=== PATIENT | female | born 1955 | race Caucasian/White ===

== ENCOUNTER 2024-07-21 09:28 | Inpatient (IN) | payer MEDICARE, BC, SELFPAY ==
[2024-07-21] VITALS (85 sets, daily range): BP systolic 109–155; BP diastolic 62–78; PULSE 79–102; RESP 11–30; TEMP 36.3–36.6; O2SAT 89–97; BMI 27.9
--- NOTE | 2024-07-21 09:36 | ECG_ITS ---
[facility] 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 Measurements Intervals Britton Rate: 91 P: 50 RI: 143 QRS: -16 QRSD: 85 T: 53 QT: 348 QTc: 429 Interpretive Statements SINUS RHYTHM LOW QRS VOLTAGE IN PRECORDIAL LEADS [QRS DEFLECTION < 1.0 mV IN CHEST LEADS] PATTERN CONSISTENT WITH PULMONARY DISEASE No previous ECG available for comparison Electronically Signed On 07-21-2024 19:28:52 FITTER HAND by Vicki Rodriguez M.D. [email or web address]
--- NOTE | 2024-07-21 09:36 | XR_ITS ---
WS: [id number] XR chest 2V* [id number] REASON FOR EXAM: cough, shortness of breath FINDINGS: The heart and mediastinum are within normal limits. Calcified granulomas disease in both hemithoraces. Reticular and groundglass opacities in both lower lobes, most notably on the right, compatible with a cute or subacute pneumonitis. Blunting of the right costophrenic angle which may indicate pleural effusion. Blunting of the XR/XR chest 2V* [id number] IMPRESSION: Findings compatible with acute or subacute pneumonitis. Potential right pleural effusion.
--- NOTE | 2024-07-21 10:05 | ED_ITS ---
HPI - SOB/Dyspnea 2 General: Chief Complaint: Shortness of Breath/Dyspnea Stated Complaint: SOB, no engery, coughing Time Seen by Provider: 07/21/24 09:55 Source: patient Mode of arrival: ambulatory Limitations: no limitations History of Present Illness: HPI Narrative: 68-year-old female states she has had co ugh congestion fatigue with subjective fevers at home over the last 4 days. She states she is progressively gotten more short of breath with worsening cough. She states she is diagnosed with strep on Friday started on antibiotics. She denies any vomiting or diarrhea. Has some mild hypoxia here. Associated symptoms: Reports fever(s); Deny abdominal pain, chest pain, nausea or vomiting Related Data Home Medications Medication Instructions Recorded Confirmed aspirin 81 mg tablet,delayed 81 mg PO DAILY 07/21/24 07/21/24 release (Mikey Low Dose Aspirin) cephalexin 500 mg capsule 500 mg PO TID 07/21/24 07/21/24 cholecalciferol (vitamin D3) 50 50 mcg PO DAILY 07/21/24 07/21/24 mcg (2,000 unit) tablet (Vitamin D3) fenofibrate nanocrystallized 145 145 mg PO DAILY 07/21/24 07/21/24 mg tablet levothyroxine 88 mcg tablet 88 mcg PO DAILY 07/21/24 07/21/24 venlafaxine 150 mg 150 mg PO BEDTIME 07/21/24 07/21/24 capsule,extended release 24 hr Previous Rx's Medication Instructions Recorded rosuvastatin 20 mg tablet 20 mg PO DAILY #90 tabs 11/25/19 Allergies Allergy/AdvReac Type Severity Reaction Status Date / Time meperidine [From Demerol] Allergy ALGY-Hives Verified 07/21/24 09:47 Review of Systems 2 Const: Reports: fever(s), chills and fatigue; Denies: body aches or change in appetite ENMT: Reports: throat pain; Denies: dental pain Card: Denies: chest pain Resp: Reports: dyspnea and productive cough GI: Denies: abdominal pain, nausea, vomiting or diarrhea : Denies: dysuria Musc: Denies: neck pain or back pain Skin/Breast: Denies: rash Neuro: Denies: headache(s) Physical Exam 2 Const: COMMON NORMALS: patient oriented x3 HENMT: COMMON NORMALS: normocephalic and atraumatic HEAD & SCALP: n ormocephalic and atraumatic Eye: COMMON NORMALS: conjunctivae normal CONJUNCTIVA: Yes conjunctivae normal Neck/C-Spine: COMMON NORMALS: full ROM and supple Chest: COMMONS NORMALS: normal inspection of the chest Resp: COMMON NORMALS: No retractions and No use of accessory muscles EFFORT & INSPECTION: Yes respiratory distress AUSCULTATION: rhonchi Cardio: COMMON NORMALS: regular rate, regular rhythm and No murmurs present (Cardio) RATE: regular rate RHYTHM: regular rhythm Extremity: COMMON NORMALS: normal to inspection and full ROM Neuro: COMMON NORMALS: patient oriented x3, moves all extremities and no focal motor deficits Psych: COMMON NORMALS: mental status grossly normal, Normal thought process present and cooperative THOUGHT PROCESS: Normal thought process present Skin: COMMON NORMALS: no rashes or lesions noted and no wounds GENERAL SKIN EXAM: no rashes or lesions noted Course 2 Vital Signs: Vital signs: Vital Signs Temperature 97.4 F L 07/21/24 09:41 Pulse Rate 93 07/21/24 11:00 Respiratory Rate 20 H 07/21/24 11:00 Blood Pressure 121/68 07/21/24 11:00 Pulse Oximetry 94 07/21/24 11:00 Oxygen Delivery Me thod Nasal Cannula 07/21/24 10:55 Oxygen Flow Rate 3 07/21/24 10:55 MDM - SOB/Dyspnea Medical Decision Making Patient presents here with cough shortness of breath x-ray shows likely pneumonia she is requiring 3 L oxygen here I spoke to hospitalist will admit at this time. Medical Records I reviewed the patient's medical records. Lab Data I reviewed the patient's lab results. 07/21/24 09:58 07/21/24 09:58 Labs/Radiology: Radiology Impressions Chest X-Ray 07/21/24 09:36 IMPRESSION: Findings compatible with acute or subacute pneumonitis. Potential right pleural effusion. Laboratory Results WBC 15.66 10^3/uL (3.29-11.43) H 07/21/24 09:58 RBC 4.16 10^6/uL (3.85-5.65) 07/21/24 09:58 Hgb 12.90 g/dL (11.27-16.99) 07/21/24 09:58 Hct 38.6 % (36-47) 07/21/24 09:58 MCV 92.8 fl (85-98) 07/21/24 09:58 MCH 31.0 pg (27-33) 07/21/24 09:58 MCHC 33.4 g/dL (30-55) 07/21/24 09:58 RDW 12.8 % (12.1-15.1) 07/21/24 09:58 Plt Count 496 10^3/cmm (157-399) H 07/21/24 09:58 MPV 9.3 fL (7.4-10.4) 07/21/24 09:58 Lymph % (Auto) Not Reportable 07/21/24 09:58 [place] % (Auto) Not Reportable 07/21/24 09:58 Lymph # (Auto) Not Reportable 07/21/24 09:58 [place] # (Auto) Not Reportable 07/21/24 09:58 Total Counted 100 (0-100) 07/21/24 09:58 Atypical Lymphs % 0.0 % (0-5) 07/21/24 09:58 Absolute Neutrophils 12.5 10^3/cmm (1.4-6.5) H 07/21/24 09:58 Segmented Neutrophils 74 % 07/21/24 09:58 Band Neutrophils 6.0 % 07/21/24 09:58 Absolute Lymphocytes 2.0 10^3/cmm (1.2-3.4) 07/21/24 09:58 Lymphocytes (Manual) 13 % 07/21/24 09:58 Monocytes (Manual) 2.0 % 07/21/24 09:58 Absolute Monocytes 0.3 10^3/cmm (0.1-0.6) 07/21/24 09:58 Eosinophils (Manual) 0 % 07/21/24 09:58 Absolute Eosinophils 0.0 10^3/cmm (0.0-0.7) 07/21/24 09:58 Basophils (Manual) 0.0 % 07/21/24 09:58 Absolute Basophils 0.0 10^3/cmm (0.0-0.2) 07/21/24 09:58 Metamyelocytes 2.0 % 07/21/24 09:58 Myelocytes 3.0 % 07/21/24 09:58 Nucleated RBCs 1.0 /100WBC (0-1) 07/21/24 09:58 Platelet Estimate Increased (Normal) H 07/21/24 09:58 Polychromasia Trace 07/21/24 09:58 Sodium 134 mmol/L (136-145) L 07/21/24 09:58 Potassium 3.5 mmol/L (3.5-5.1) 07/21/24 09:58 Chloride 94 mmol/L (98-107) L 07/21/24 09:58 Carbon Dioxide 26 mmol/L (22-29) 07/21/24 09:58 Anion Gap 17.5 (5-19) 07/21/24 09:58 BUN 33 mg/dL (8-23) H 07/21/24 09:58 Creatinine 0.9 mg/dL (0.5-0.9) 07/21/24 09:58 GFR Calculation 62.3 mL/min (90-130) L 07/21/24 09:58 Glucose 108 mg/dL (65-115) 07/21/24 09:58 Calculated Osmolality 286 mOsm/kg (285-295) 07/21/24 09:58 Calcium 10.5 mg/dL (8.5-10.5) 07/21/24 09:58 Magnesium 2.1 mg/dL (1.7-2.3) 07/21/24 09:58 Total Bilirubin 0.4 mg/dL (0.15-1.2) 07/21/24 09:58 AST 159 U/L (0-32) H 07/21/24 09:58 ALT 120 U/L (0-33) H 07/21/24 09:58 Alkaline Phosphatase 95 U/L (35-105) 07/21/24 09:58 NT-Pro-B Natriuret Pep 64 pg/mL (0-125) 07/21/24 09:58 Total Protein 8.1 g/dL (6.6-8.7) 07/21/24 09:58 Albumin 3.7 g/dL (3.5-5.2) 07/21/24 09:58 Globulin 4.4 g/dL (1.3-4.6) 07/21/24 09:58 Coronavirus (PCR) Negative (Negative) 07/21/24 10:05 Influenza A (PCR) Negative (Negative) 07/21/24 10:05 Influenza Type B (PCR) Negative (Negative) 07/21/24 10:05 RSV (PCR) Negative (Negative) 07/21/24 10:05 All radiology interpretation(s) finalized by discharge EKG Data EKG 1: I personally reviewed and interpreted this EKG as follows: EKG Interpretation Date: 07/21/24 EKG interpretation time: 09:48 Interpretation: nsr hr [address] elevation qrs 85 qtc 397 Discharge Plan Discharge Patient Disposition: Admitted As Inpatient Clinical Impression: Community acquired pneumonia, Acute respiratory failure with hypoxia Condition: Stable Prescriptions: No Action rosuvastatin 20 mg tablet 20 mg PO DAILY Qty: 90 0RF venlafaxine 150 mg capsule,extended release 24hr 150 mg PO BEDTIME aspirin [Mikey Low Dose Aspirin] 81 mg Tablet,Delayed Release (Dr/Ec) 81 mg PO DAILY levothyroxine 88 mcg tablet 88 mcg PO DAILY cephalexin 500 mg capsule 500 mg PO TID fenofibrate nanocrystallized 145 mg tablet 145 mg PO DAILY cholecalciferol (vitamin D3) [Vitamin D3] 50 mcg (2,000 unit) Tablet 50 mcg PO DAILY Referrals: Nazanin Dumont APN [Primary Care Provider] - Coding Level of Care Code ED Concrete Mixer Operator Helper for [facility]
[2024-07-21 10:09] LABS: Hematocrit 38.6 % (36-47); Mean Corpuscular HGB Conc 33.4 g/dL (30-55); Mean Corpuscular Volume 92.8 fl (85-98); Mean Platelet Volume 9.3 fL (7.4-10.4); Platelet Count 496 10^3/cmm (157-399); Red Blood Count 4.16 10^6/uL (3.85-5.65); Red Cell Distribution Width 12.8 % (12.1-15.1); White Blood Count 15.66 10^3/uL (3.29-11.43)
[2024-07-21 10:52] LABS: Alanine Aminotransferase 120 U/L (0-33); Albumin Level 3.7 g/dL (3.5-5.2); Alkaline Phosphatase 95 U/L (35-105); Anion Gap 17.5 (5-19); Aspartate Amino Transferase 159 U/L (0-32); Blood Urea Nitrogen 33 mg/dL (8-23); Calcium 10.5 mg/dL (8.5-10.5); Carbon Dioxide 26 mmol/L (22-29); Chloride 94 mmol/L (98-107); Creatinine Clr Calc Pharmacy 50.2875; Globulin 4.4 g/dL (1.3-4.6); Glomerular Filtration Rate 62.3 mL/min (90-130); Glucose 108 mg/dL (65-115); Magnesium 2.1 mg/dL (1.7-2.3); NT Pro B Type Natriuretic Pept 64 pg/mL (0-125); Osmolality Calculated 286 mOsm/kg (285-295); Potassium 3.5 mmol/L (3.5-5.1); Sodium 134 mmol/L (136-145); Total Bilirubin 0.4 mg/dL (0.15-1.2); Total Protein 8.1 g/dL (6.6-8.7)
[2024-07-21 11:02] LABS: Slide Review Slide Review Perform
[2024-07-21 11:09] LABS: Total Cells Counted 100 (0-100)
[2024-07-21 11:12] LABS: Absolute Neutrophil 12.5 10^3/cmm (1.4-6.5); Absolute Segmented Neutrophil 11.6 10/cmm (1.6-7.1); Band Neutrophils Absolute 0.9 10^3/cmm (0.0-1.2); Eosinophils 0 %; Lymphocytes 13 %; Monocytes Absolute 0.3 10^3/cmm (0.1-0.6); Platelet Estimate Increased (Normal); Polychromasia Trace; Segmented Neutrophils 74 %
[2024-07-21 11:14] LABS: Covid PCR NEGATIVE (Negative); Influenza A NEGATIVE (Negative); Influenza B NEGATIVE (Negative); Respiratory Syncytial Virus Ce NEGATIVE (Negative)
[2024-07-21] MEDS: cefTRIAXone 1,000 mg SDV 1000 MG IVP (11:27)
[2024-07-21] MEDS: AZITHROMYCIN ADD-Vantage 500 MG in 0.9% NaCl ADD-Vantage 250 ML 250 MG IV (11:39)
--- NOTE | 2024-07-21 12:44 | P.HP_ITS ---
Documented by User: Edin Reilly 07/21/24 13:21 Providers/Chief Complaint 2 Admitting Physician: Hans Bynum MD Primary Care Provider: Nazanin Dumont APN Chief Complaint: SOB, no engery, coughing History of Present Illness Ludmila Sánchez is a 68 y.o. female who presented to the ED with several days of cough, chills, shortness of breath, weakness, and headache. She has not checked her temperature but has felt subjectively febrile. She states her appetite has been virtually nonexistent, but she has managed to force herself to stay hydrated. She was seen by her primary care provider on Friday and given antibiotics after a positive strep swab. She states other testing including COVID was negative at that time. Her throat does not feel sore today. She has not had any vomiting or abdominal pain. She informs us about a severe bout of pneumonia she had around 2011 that caused her to be hospitalized and receive numerous trials of antibiotics. She feels that illness left her with some permanent lung problems. However, she does not require any oxygen at baseline. Review of Systems 2 General: Reports: 10 or more systems reviewed and unremarkable except in HPI and below Const: Reports: fever(s), chills, change in appetite and fatigue Eyes: Denies: change in vision ENMT: Denies: throat pain or odynophagia Card: Reports: chest pain; Denies: edema, swelling of feet/ankles or acrocyanosis Resp: Reports: dyspnea and non-productive cough GI: Reports: diarrhea; Denies: abdominal pain, vomiting or dysphagia : Denies: difficulty voiding Musc: Reports: joint pain Skin/Breast: Denies: rash Neuro: Reports: headache(s); Denies: numbness in extremities or lack of coordination Psych: Reports: change in appetite Medications/Allergies Home Medications Medication Instructions Recorded Confirmed Last Taken Type rosuvastatin 20 mg tablet 20 mg PO DAILY #90 tabs 11/25/19 07/21/24 07/20/24 Rx aspirin 81 mg tablet,delayed 81 mg PO DAILY 07/21/24 07/21/24 07/20/24 History release (Mikey Low Dose Aspirin) cephalexin 500 mg capsule 500 mg PO TID 07/21/24 07/21/24 07/20/24 History cholecalciferol (vitamin D3) 50 50 mcg PO DAILY 07/21/24 07/21/24 07/20/24 History mcg (2,000 unit) tablet (Vitamin D3) fenofibrate nanocrystallized 145 145 mg PO DAILY 07/21/24 07/21/24 07/20/24 History mg tablet levothyroxine 88 mcg tablet 88 mcg PO DAILY 07/21/24 07/21/24 07/20/24 History venlafaxine 150 mg 150 mg PO BEDTIME 07/21/24 07/21/24 07/20/24 History capsule,extended release 24 hr Allergies Allergy/AdvReac Type Severity Reaction Status Date / Time meperidine [From Demerol] Allergy ALGY-Hives Verified 07/21/24 09:47 PFSH Acute 2 PFSH: Medical History (Updated 07/21/24 @ 13:28 by Hans Bynum MD) Depression Hypothyroidism Hyperlipidemia Surgical History (Updated 07/21/24 @ 13:29 by Hans Bynum MD) History of carpal tunnel surgery Social History (Updated 07/21/24 @ 13:29 by Hans Bynum MD) Smoking and tobacco/nicotine status: former use of tobacco/nicotine Alcohol intake: never Vitals/I&O/Wt Last Vital Signs Temp 97.4 F L 07/21/24 09:41 Pulse 90 07/21/24 12:20 Resp 24 H 07/21/24 12:20 BP 109/62 07/21/24 12:20 Pulse Ox 92 07/21/24 12:20 O2 Del Method Nasal Cannula 07/21/24 11:25 O2 Flow Rate 3 07/21/24 11:25 Weight last 48 hrs Weight 143 lb Physical Exam 2 Narrative: General: Alert and oriented. Visibly ill. On oxygen via nasal cannula. HEENT: Normocephalic, atraumatic. Oropharynx clear. Cardiovascular: Regular rate and rhythm. No murmurs. Pulmonary: Coarse breath sounds. Diminished breath sounds on lower right lung field. Abdomen: Soft, nondistended. No obvious organomegaly. Nontender. Extremities: No edema. No cyanosis. Neuro/Psych: No obvious focal deficits. Appropriate mood and affect. Conversational. Data 07/21/24 09:58 07/21/24 09:58 Micro: Microbiology 07/21/24 11:10 Blood Culture - Preliminary Blood SPECIMEN COLLECTED 07/21/24 11:10 Blood Culture - Preliminary Blood SPECIMEN COLLECTED A&P Assessment and plan (1) Community acquired pneumonia: Presents with 4+ days of SOB, chills, nonproductive cough, and malaise. Subjective fevers noted, but no objective fevers recorded. Given cephalexin by PCP on Friday for strep throat. Will discontinue at this time. Today, CXR suggests pneumonia/pneumonitis with potential right pleural effusion. Will order CT chest to further evaluate. Labs show leukocytosis with left shift. COVID, Influenza A & B, and RSV all negative. Ordered MRSA swab and Legionella antigen. Currently on 3L via NC. IV antibiotics with azithromycin and ceftriaxone. (2) Acute respiratory failure with hypoxia: See above. Likely secondary to community acquired pneumonia. Currently requiring 3L O2 via NC. (3) Elevated liver transaminase level: AST 159. ALT 120. Alk phos and bilirubin normal. Hepatitis panel pending. Plan DVT prophylaxis: Lovenox Full code. Coding Level of Care Code 00113 Diagnoses Community acquired pneumonia J18.9 Acute respiratory failure with hypoxia J96.01 Elevated liver transaminase level R74.01 Time Spent (min) 56 Documented by User: Hans Bynum MD 07/21/24 13:33 Providers/Chief Complaint 2 Chief Complaint: SOB, no engery, coughing Medications/Allergies Home Medications Medication Instructions Recorded Confirmed Last Taken Type rosuvastatin 20 mg tablet 20 mg PO DAILY #90 tabs 11/25/19 07/21/24 07/20/24 Rx aspirin 81 mg tablet,delayed 81 mg PO DAILY 07/21/24 07/21/24 07/20/24 History release (Mikey Low Dose Aspirin) cephalexin 500 mg capsule 500 mg PO TID 07/21/24 07/21/24 07/20/24 History cholecalciferol (vitamin D3) 50 50 mcg PO DAILY 07/21/24 07/21/24 07/20/24 History mcg (2,000 unit) tablet (Vitamin D3) fenofibrate nanocrystallized 145 145 mg PO DAILY 07/21/24 07/21/24 07/20/24 History mg tablet levothyroxine 88 mcg tablet 88 mcg PO DAILY 07/21/24 07/21/24 07/20/24 History venlafaxine 150 mg 150 mg PO BEDTIME 07/21/24 07/21/24 07/20/24 History capsule,extended release 24 hr Allergies Allergy/AdvReac Type Severity Reaction Status Date / Time meperidine [From Demerol] Allergy ALGY-Hives Verified 07/21/24 09:47 PFSH Acute 2 PFSH: Medical History (Updated 07/21/24 @ 13:28 by Hans Bynum MD) Depression Hypothyroidism Hyperlipidemia Surgical History (Updated 07/21/24 @ 13:29 by Hans Bynum MD) History of carpal tunnel surgery Social History (Updated 07/21/24 @ 13:29 by Hans Bynum MD) Smoking and tobacco/nicotine status: former use of tobacco/nicotine Alcohol intake: never Data 07/21/24 09:58 07/21/24 09:58 Other Labs: LFTs normal with the exception of AST and ALT which were 159 and 120 Glucose calcium and albumin are all normal TSH is elevated 7.44 Hepatitis panel which I ordered is negative. Coronavirus, influenza, RSV all negative Chest x-ray which I reviewed demonstrates an infiltrate in the right lower lobe with possible effusion. Blood cultures were drawn EKG which I reviewed demonstrates sinus rhythm, poor R wave progression,, left axis deviation. A&P Assessment and plan (1) Community acquired pneumonia: Presents with 4+ days of SOB, chills, nonproductive cough, and malaise. Subjective fevers noted, but no objective fevers recorded. Given cephalexin by PCP on Friday for strep throat. Will discontinue at this time. Today, CXR suggests pneumonia/pneumonitis with potential right pleural effusion. Will order CT chest to further evaluate. Patient reports some chest discomfort with deep breathing and coughing. Therefore, will obtain a CTA. Labs show leukocytosis with left shift. COVID, Influenza A & B, and RSV all negative. Ordered MRSA swab and Legionella antigen. Currently on 3L via NC. IV antibiotics with azithromycin and ceftriaxone. Sputum culture Secondary to severity of pneumonia we will go ahead and give 1 dose of Solu- Medrol and reevaluate tomorrow. DuoNeb as needed (2) Acute respiratory failure with hypoxia: See above. Likely secondary to community acquired pneumonia. Currently requiring 3L O2 via NC. Wean oxygen as tolerated (3) Elevated liver transaminase level: AST 159. ALT 120. Alk phos and bilirubin normal. Hepatitis panel pending. Now back and negative Secondary to slightly abnormal EKG, elevated AST will check a troponin. Attestations 2 Medical Necessity Statement*: Will need greater than 2 midnight stay for evaluation and treatment of community-acquired pneumonia with IV antibiotics, in this patient who was hypoxic. Diagnoses Community acquired pneumonia J18.9 Acute respiratory failure with hypoxia J96.01 Elevated liver transaminase level R74.01 Time Spent (min) 56
[2024-07-21 13:10] LABS: Thyroid Stimulating Hormone 7.44 uIU/mL (0.27-4.20)
[2024-07-21 13:14] LABS: Hepatitis A Antibody IgM Non-Reactive (Nonreactive); Hepatitis B Core IgM Non-Reactive (Nonreactive); Hepatitis B Surface Antigen Non-Reactive (Nonreactive); Hepatitis C Virus Antibody Non-Reactive (Nonreactive)
--- NOTE | 2024-07-21 13:22 | CTR_ITS ---
PROCEDURE INFORMATION: Exam: CTA Chest With Contrast Exam date and time: 07/21/2024 1:52 PM Age: 68 years old Clinical indication: Cough and shortness of breath; Additional info: Possible effusion, chest pain, pneumonia TECHNIQUE: Imaging protocol: Computed tomographic angiography of the chest with contrast. Exam focused on the arteries. 3D rendering (Not supervised by radiologist): MIP and/or 3D reconstructed images were created by the technologist. Radiation optimization: All CT scans at this facility use at least one of these dose optimization techniques: automated exposure control; mA and/or kV adjustment per patient size (includes targeted exams where dose is matched to clinical indication); or iterative reconstruction. Contrast material: OMNI 350; Contrast volume: 70 ml; Contrast route: INTRAVENOUS (IV); COMPARISON: CR XR chest 2V* [id number] 07/21/2024 10:00 AM RADIATION DOSE METRICS: Total DLP (mGy-cm): 340.09 FINDINGS: Pulmonary arteries: No PE. No evidence of cardiac strain. Aorta: Unremarkable. No aortic aneurysm. No aortic dissection. Lungs: Scattered reticulonodular , small patchy, and large consolidative opacities bilaterally, most prominently right lung base. Pleural spaces: Unremarkable. No pneumothorax. No pleural effusion. Heart: Heart size upper limits of normal. Lymph nodes: Right hilar lymph nodes measuring up to 16 mm short axis. No distinct mediastinal or left hilar adenopathy. Spleen: Punctate calcified granulomas in the spleen. Bones/joints: Unremarkable. No acute fracture. Soft tissues: Unremarkable. CT/CT angio chest PE protcl [id number] IMPRESSION: 1. No PE. No evidence of cardiac strain. 2. Bilateral pneumonia.
[2024-07-21] MEDS: enoxaparin 40 mg/0.4 mL Syringe SUBCUT (13:38)
[2024-07-21] MEDS: methylPREDNISolone sod succ 125 mg/2 mL INJ 60 MG IVP (13:41)
[2024-07-21 14:00] LABS: Troponin T (5th) Once 10 ng/L (0-10)
[2024-07-21] MEDS: iohexol 350 mg/mL 500 mL Btl (per mL) IV (14:07)
[2024-07-21 14:41] LABS: Bilirubin Urine Negative (Negative); Blood Urine Negative (Negative); Glucose Urine UA Negative (Normal); Ketones Urine Negative (Negative); Leukocyte Esterase Urine 1+ (Negative); Nitrate Urine Negative (Negative); Protein Urine Trace (Negative); Urine Appearance Clear (CLEAR); Urine Color Yellow (Yellow)
[2024-07-21 14:46] LABS: Bacteria Urine None Seen /hpf; Hyaline Casts Urine 0.81 /lpf; RBC Urine 0-2 /hpf (0-2); Squamous Epithelial Cell Urine 0-5 /hpf (0-5)
[2024-07-21 15:54] LABS: MRSA PCR OZH (swab) NOT DETECTED (Not Detecte)
[2024-07-21] MEDS: venlafaxine ER (24HR) 150 mg Capsule PO (21:32)
[2024-07-22] VITALS (8 sets, daily range): BP systolic 118–143; BP diastolic 56–85; PULSE 73–82; RESP 17–82; TEMP 36.4–36.7; O2SAT 90–98
[2024-07-22 05:56] LABS: Basophils # 0.1 10^3/uL (0.0-0.1); Basophils % 0.4 %; Hematocrit 36.5 % (36-47); Lymphocytes # 2.1 10^3/uL (0.8-4.8); Lymphocytes % 12.8 %; Mean Corpuscular HGB Conc 33.2 g/dL (30-55); Mean Corpuscular Hemoglobin 31.3 pg (27-33); Mean Corpuscular Volume 94.3 fl (85-98); Mean Platelet Volume 9.5 fL (7.4-10.4); Monocytes # 0.8 10^3/uL (0.2-0.9); Monocytes % 4.8 %; Neutrophils # 12.82 10^3/uL (1.8-7.7); Neutrophils % 76.6 %; Nucleated Red Blood Cells % 0 %; Platelet Count 429 10^3/cmm (157-399); Red Blood Count 3.87 10^6/uL (3.85-5.65); Red Cell Distribution Width 13.2 % (12.1-15.1); White Blood Count 16.74 10^3/uL (3.29-11.43)
[2024-07-22 06:23] LABS: Alanine Aminotransferase 171 U/L (0-33); Albumin Level 3.3 g/dL (3.5-5.2); Alkaline Phosphatase 116 U/L (35-105); Anion Gap 17.1 (5-19); Aspartate Amino Transferase 173 U/L (0-32); Blood Urea Nitrogen 23 mg/dL (8-23); Calcium 9.8 mg/dL (8.5-10.5); Carbon Dioxide 27 mmol/L (22-29); Chloride 102 mmol/L (98-107); Creatinine Clr Calc Pharmacy 57.2479; Globulin 4.1 g/dL (1.3-4.6); Glomerular Filtration Rate 83.2 mL/min (90-130); Glucose 154 mg/dL (65-115); Magnesium 2.3 mg/dL (1.7-2.3); Osmolality Calculated 301 mOsm/kg (285-295); Potassium 4.1 mmol/L (3.5-5.1); Sodium 142 mmol/L (136-145); Total Bilirubin 0.3 mg/dL (0.15-1.2); Total Protein 7.4 g/dL (6.6-8.7)
[2024-07-22 07:22] LABS: Slide Review Slide Review Perform
--- NOTE | 2024-07-22 08:01 | US_ITS ---
WS: [id number] ULTRASOUND ABDOMEN LIMITED CLINICAL INFORMATION: elevated LFT's COMPARISON: None. FINDINGS: Technically difficult study. Liver Size: Upper limits of normal Craniocaudal length: 15.0 cm. Echogenicity: Coarse Surface nodularity: None. Mass (size and location): None. Normal flow in the main portal vein. Bile ducts Intrahepatic ducts: Normal. Common bile duct diameter: 0.4 cm. Gallbladder Contracted Gallstones: None. Gallbladder sludge: None. Gallbladder wall thickening: None. Pericholecystic fluid: None. Sonographic Sam sign: Absent. Pancreas Normal as visualized. Right kidney: Normal. Hydronephrosis: None. Size: 9.3 cm x 3.9 cm x 4.5 cm. Abdominal aorta and IVC Visualized portions are normal. Ascites: None. US/US gall bladder [id number] IMPRESSION: Technically difficult study 1. Mild diffuse fatty infiltration of the liver. 2. Otherwise normal ultrasound
[2024-07-22] MEDS: levothyroxine 88 mcg Tablet PO (08:45)
[2024-07-22] MEDS: aspirin 81 mg EC Tablet PO (08:45)
[2024-07-22] MEDS: cefTRIAXone 1,000 mg SDV 1000 MG IVP (08:54)
[2024-07-22] MEDS: AZITHROMYCIN ADD-Vantage 500 MG in 0.9% NaCl ADD-Vantage 250 ML 250 MG IV (09:19)
--- NOTE | 2024-07-22 09:24 | P.PN_ITS ---
Subjective 2 Subjective: Ludmila reports she feels a bit better. No chest pain. Less short of breath. Still coughing some. Now on 2 L of oxygen. Medications: Reviewed: Yes Vitals/I&O/Wt Last Vital Signs Temp 98.0 F 07/22/24 08:02 Pulse 79 07/22/24 08:02 Resp 18 07/22/24 08:02 BP 132/77 07/22/24 08:02 Pulse Ox 91 07/22/24 08:02 O2 Del Method Room Air 07/22/24 08:02 O2 Flow Rate 2 07/21/24 18:41 07/21/24 07/22/24 07/22/24 22:59 06:59 14:59 Intake Total 240 / 240 Output Total 300 / 300 Balance -300 / -50 240 / 240 Weight last 48 hrs Weight 66.451 kg Weight 64.864 kg Physical Exam 2 Narrative: General: Looks more energetic Cardiovascular: Regular rate and rhythm. No murmurs. Pulmonary: Coarse breath sounds. Diminished breath sounds on lower right lung field. Abdomen: Soft, nondistended. No obvious organomegaly. Nontender. Extremities: No edema. No cyanosis. Data 07/22/24 05:19 07/22/24 05:19 Micro: Microbiology 07/21/24 12:14 Legionella Urinary Antigen - Final Urine,Clean Catch 07/21/24 11:10 Blood Culture - Preliminary Blood SPECIMEN COLLECTED 07/21/24 11:10 Blood Culture - Preliminary Blood SPECIMEN COLLECTED A&P Assessment and plan (1) Community acquired pneumonia: Presents with 4+ days of SOB, chills, nonproductive cough, and malaise. Subjective fevers noted, but no objective fevers recorded. Given cephalexin by PCP on Friday for strep throat. Will discontinue at this time. Today, CXR suggests pneumonia/pneumonitis with potential right pleural effusion. CTA showed no embolism. No effusion. Labs show leukocytosis with left shift. COVID, Influenza A & B, and RSV all negative. Ordered MRSA swab and Legionella antigen. Currently on 3L via NC. Continue IV antibiotics with azithromycin and ceftriaxone. Sputum culture pending Secondary to severity of pneumonia we will go ahead and give 1 dose of Solu- Medrol and reevaluate tomorrow. No further Solu-Medrol considering her rapid improvement DuoNeb as needed Wean oxygen as tolerated If off oxygen by tomorrow, feeling improved possible discharge. (2) Acute respiratory failure with hypoxia: See above. Likely secondary to community acquired pneumonia. Currently requiring 2L O2 via NC. Wean oxygen as tolerated (3) Elevated liver transaminase level: LFTs still elevated. Check gallbladder ultrasound. Hepatitis panel was negative. Patient with no significant abdominal pain currently. Plan DVT prophylaxis: Lovenox Full code. Attestations 2 Medical Necessity Statement*: Needs continued hospitalization for IV antibiotics secondary to pneumonia, rather extensive right greater than left lower lobe Diagnoses Community acquired pneumonia J18.9 Acute respiratory failure with hypoxia J96.01 Elevated liver transaminase level R74.01 Time Spent (min) 24
[2024-07-22] MEDS: enoxaparin 40 mg/0.4 mL Syringe SUBCUT (13:57)
[2024-07-22] MEDS: acetaminophen 325 mg Tablet 650 MG PO ×2 (16:50→23:05)
--- NOTE | 2024-07-22 18:40 | PC.NURSE ---
Patient took a shower and requested not to put the telemetry box back on.
[2024-07-22] MEDS: venlafaxine ER (24HR) 150 mg Capsule PO (21:08)
[2024-07-23] VITALS (10 sets, daily range): BP systolic 137–155; BP diastolic 63–89; PULSE 71–85; RESP 15–20; TEMP 36.3–37.4; O2SAT 90–91
[2024-07-23 06:37] LABS: Basophils # 0.1 10^3/uL (0.0-0.1); Basophils % 0.5 %; Eosinophils % 0.2 %; Hematocrit 37.5 % (36-47); Lymphocytes # 2.7 10^3/uL (0.8-4.8); Lymphocytes % 15.2 %; Mean Corpuscular HGB Conc 32.8 g/dL (30-55); Mean Corpuscular Hemoglobin 31.4 pg (27-33); Mean Corpuscular Volume 95.7 fl (85-98); Mean Platelet Volume 9.2 fL (7.4-10.4); Neutrophils # 12.35 10^3/uL (1.8-7.7); Nucleated Red Blood Cells % 0 %; Platelet Count 540 10^3/cmm (157-399); Red Blood Count 3.92 10^6/uL (3.85-5.65); Red Cell Distribution Width 13.2 % (12.1-15.1)
[2024-07-23 06:48] LABS: Anion Gap 16.6 (5-19); Blood Urea Nitrogen 18 mg/dL (8-23); Calcium 9.2 mg/dL (8.5-10.5); Carbon Dioxide 25 mmol/L (22-29); Chloride 99 mmol/L (98-107); Creatinine Clr Calc Pharmacy 57.9228; Glomerular Filtration Rate 71.3 mL/min (90-130); Glucose 102 mg/dL (65-115); Osmolality Calculated 286 mOsm/kg (285-295); Potassium 3.6 mmol/L (3.5-5.1); Sodium 137 mmol/L (136-145)
[2024-07-23] MEDS: aspirin 81 mg EC Tablet PO (08:39)
[2024-07-23] MEDS: levothyroxine 88 mcg Tablet PO (08:39)
[2024-07-23] MEDS: cefTRIAXone 1,000 mg SDV 1000 MG IVP (08:39)
[2024-07-23 08:40] LABS: Alanine Aminotransferase 151 U/L (0-33); Aspartate Amino Transferase 114 U/L (0-32); Lactate Dehydrogenase 262 U/L (135-214)
[2024-07-23] MEDS: AZITHROMYCIN ADD-Vantage 500 MG in 0.9% NaCl ADD-Vantage 250 ML 250 MG IV (08:40)
--- NOTE | 2024-07-23 12:19 | P.PN_ITS ---
Subjective 2 Subjective: Saw patient several times today. He has been able to wean to room air, but saturations are borderline at 90%. She still feels short of breath when she exerts. She still coughing but a little bit less. No chest pain. Medications: Reviewed: Yes Vitals/I&O/Wt Last Vital Signs Temp 98.1 F 07/23/24 07:45 Pulse 81 07/23/24 07:54 Resp 16 07/23/24 07:54 BP 155/89 07/23/24 07:45 Pulse Ox 90 07/23/24 07:54 O2 Del Method Room Air 07/23/24 07:54 O2 Flow Rate 2 07/22/24 10:53 07/22/24 07/23/24 07/23/24 22:59 06:59 14:59 Intake Total 1060 / 1790 580 / 580 Balance 1060 / 1790 580 / 580 Weight last 48 hrs Weight 68.039 kg Weight 66.451 kg Physical Exam 2 Narrative: General: Looks more energetic Cardiovascular: Regular rate and rhythm. No murmurs. Pulmonary: Coarse breath sounds at the bases bilaterally Abdomen: Soft, nondistended. No obvious organomegaly. Nontender. Extremities: No edema. No cyanosis. Data 07/23/24 05:52 07/23/24 05:52 Micro: Microbiology 07/21/24 11:10 Blood Culture - Preliminary Blood NEGATIVE TO DATE 07/21/24 11:10 Blood Culture - Preliminary Blood NEGATIVE TO DATE A&P Assessment and plan (1) Community acquired pneumonia: Presents with 4+ days of SOB, chills, nonproductive cough, and malaise. Subjective fevers noted, but no objective fevers recorded. Given cephalexin by PCP on Friday for strep throat. Will discontinue at this time. Today, CXR suggests pneumonia/pneumonitis with potential right pleural effusion. CTA showed no embolism. No effusion. Labs show leukocytosis with left shift. COVID, Influenza A & B, and RSV all negative. Ordered MRSA swab and Legionella antigen. Now on room air Continue IV antibiotics with azithromycin and ceftriaxone. Sputum culture pending DuoNeb as needed Wean oxygen as tolerated She is still fairly winded with exertion. Oxygen levels are borderline. Will continue IV antibiotics for at least 1 more day. (2) Acute respiratory failure with hypoxia: See above. Likely secondary to community acquired pneumonia. Currently requiring 2L O2 via NC. Wean oxygen as tolerated (3) Elevated liver transaminase level: LFTs still elevated. Check gallbladder ultrasound. Hepatitis panel was negative. Patient with no significant abdominal pain currently. Ultrasound showed fatty liver. LFTs are improving Plan DVT prophylaxis: Lovenox Full code. Attestations 2 Medical Necessity Statement*: Needs continued hospital stay for IV antibiotics related to pneumonia Diagnoses Community acquired pneumonia J18.9 Acute respiratory failure with hypoxia J96.01 Elevated liver transaminase level R74.01 Time Spent (min) 24
[2024-07-23] MEDS: enoxaparin 40 mg/0.4 mL Syringe SUBCUT (12:37)
[2024-07-23 14:23] LABS: Gamma Glutamyl Transferase 107 U/L (5-36)
[2024-07-23] MEDS: venlafaxine ER (24HR) 150 mg Capsule PO (20:06)
[2024-07-23] MEDS: acetaminophen 325 mg Tablet 650 MG PO (20:06)
[2024-07-24] VITALS (7 sets, daily range): BP systolic 108–166; BP diastolic 69–86; PULSE 76–89; RESP 14–18; TEMP 36.4–36.8; O2SAT 91–98
[2024-07-24 05:44] LABS: Basophils # 0.1 10^3/uL (0.0-0.1); Basophils % 0.4 %; Eosinophils # 0.1 10^3/uL (0.0-0.8); Eosinophils % 0.5 %; Hematocrit 40.3 % (36-47); Lymphocytes % 20.1 %; Mean Corpuscular HGB Conc 32.8 g/dL (30-55); Mean Corpuscular Hemoglobin 31.2 pg (27-33); Mean Corpuscular Volume 95.3 fl (85-98); Mean Platelet Volume 9.2 fL (7.4-10.4); Monocytes # 0.9 10^3/uL (0.2-0.9); Monocytes % 5.6 %; Neutrophils # 9.92 10^3/uL (1.8-7.7); Nucleated Red Blood Cells % 0 %; Platelet Count 616 10^3/cmm (157-399); Red Blood Count 4.23 10^6/uL (3.85-5.65); Red Cell Distribution Width 13.2 % (12.1-15.1); White Blood Count 15.05 10^3/uL (3.29-11.43)
[2024-07-24 05:55] LABS: Alanine Aminotransferase 118 U/L (0-33); Albumin Level 3.3 g/dL (3.5-5.2); Alkaline Phosphatase 108 U/L (35-105); Anion Gap 13.8 (5-19); Aspartate Amino Transferase 70 U/L (0-32); Blood Urea Nitrogen 12 mg/dL (8-23); Calcium 9.8 mg/dL (8.5-10.5); Carbon Dioxide 27 mmol/L (22-29); Chloride 101 mmol/L (98-107); Creatinine Clr Calc Pharmacy 56.0915; Globulin 4.1 g/dL (1.3-4.6); Glomerular Filtration Rate 71.3 mL/min (90-130); Glucose 100 mg/dL (65-115); Osmolality Calculated 286 mOsm/kg (285-295); Potassium 3.8 mmol/L (3.5-5.1); Sodium 138 mmol/L (136-145); Total Bilirubin 0.4 mg/dL (0.15-1.2); Total Protein 7.4 g/dL (6.6-8.7)
[2024-07-24 06:11] LABS: Slide Review Slide Review Perform
[2024-07-24] MEDS: aspirin 81 mg EC Tablet PO (07:50)
[2024-07-24] MEDS: levothyroxine 88 mcg Tablet PO (07:50)
[2024-07-24] MEDS: cefTRIAXone 1,000 mg SDV 1000 MG IVP (07:51)
[2024-07-24] MEDS: AZITHROMYCIN ADD-Vantage 500 MG in 0.9% NaCl ADD-Vantage 250 ML 250 MG IV (07:54)
[2024-07-24] MEDS: enoxaparin 40 mg/0.4 mL Syringe SUBCUT (12:30)
--- NOTE | 2024-07-24 13:16 | PM.DCS ---
Discharge Providers Date of Admission: 07/21/24 15:39 Date of Discharge: July 24, 2024 Attending Provider at Admission: Hans Bynum MD Attending Provider at Discharge: Sera Lal MD Primary Care Provider: Nazanin Dumont APN Diagnoses at Discharge Discharge Diagnosis (1) Community acquired pneumonia: Status: Acute (2) Acute respiratory failure with hypoxia: Status: Resolved (3) Elevated liver transaminase level: Status: Acute Reason for Visit Reason for Visit: SOB, no engery, coughing Hospital Course Hospital Course Patient presented with shortness of breath and diagnosed with community-acquired pneumonia. Chest x-ray did show evidence of pleural effusion for which CTA chest was obtained. No pulmonary embolism or cardiac strain seen, did show bilateral pneumonia. Gallbladder ultrasound was also pursued which was normal. It did show mild diffuse fatty infiltration of liver. Patient shortness of breath improved and she was sent home on room air with antibiotics. Stable at discharge. Physical Exam Narrative: General: Looks more energetic, no acute respiratory drainage x 3. Cardiovascular: Regular rate and rhythm. No murmurs. Pulmonary: To auscultation bilaterally no wheezes no rhonchi no crackles. Abdomen: Soft, nondistended. No obvious organomegaly. Nontender. Extremities: No edema. No cyanosis. Discharge Data Studies Completed and Pending Completed Studies During Hospitalization Category Date Time Status CTA chest [CT angio chest PE protcl [id number]] Stat Cat Scan 07/21/24 13:22 Completed XR chest 2V* [id number] Stat Exams 07/21/24 09:36 Completed US gall bladder [id number] Routine Ultrasound 07/22/24 08:01 Completed Pending at discharge Category Date Time Status Blood Culture Stat Lab 07/21/24 11:10 Results Sputum Culture and Gram Stain Routine Lab 07/22/24 21:41 Results Radiology Impressions Chest X-Ray 07/21/24 09:36 IMPRESSION: Findings compatible with acute or subacute pneumonitis. Potential right pleural effusion. Chest CTA 07/21/24 13:22 IMPRESSION: 1. No PE. No evidence of cardiac strain. 2. Bilateral pneumonia. Gallbladder Ultrasound 07/22/24 08:01 IMPRESSION: Technically difficult study 1. Mild diffuse fatty infiltration of the liver. 2. Otherwise normal ultrasound Laboratory Results WBC 15.05 10^3/uL (3.29-11.43) H 07/24/24 04:58 RBC 4.23 10^6/uL (3.85-5.65) 07/24/24 04:58 Hgb 13.20 g/dL (11.27-16.99) 07/24/24 04:58 Hct 40.3 % (36-47) 07/24/24 04:58 MCV 95.3 fl (85-98) 07/24/24 04:58 MCH 31.2 pg (27-33) 07/24/24 04:58 MCHC 32.8 g/dL (30-55) 07/24/24 04:58 RDW 13.2 % (12.1-15.1) 07/24/24 04:58 Plt Count 616 10^3/cmm (157-399) H 07/24/24 04:58 MPV 9.2 fL (7.4-10.4) 07/24/24 04:58 Neut % (Auto) 66.0 % 07/24/24 04:58 Lymph % (Auto) 20.1 % 07/24/24 04:58 Williams % (Auto) 5.6 % 07/24/24 04:58 Eos % (Auto) 0.5 % 07/24/24 04:58 Baso % (Auto) 0.4 % 07/24/24 04:58 Neut # (Auto) 9.92 10^3/uL (1.8-7.7) H 07/24/24 04:58 Lymph # (Auto) 3.0 10^3/uL (0.8-4.8) 07/24/24 04:58 Williams # (Auto) 0.9 10^3/uL (0.2-0.9) 07/24/24 04:58 Eos # (Auto) 0.1 10^3/uL (0.0-0.8) 07/24/24 04:58 Baso # (Auto) 0.1 10^3/uL (0.0-0.1) 07/24/24 04:58 Nucleated RBC % (auto) 0 % 07/24/24 04:58 Total Counted 100 (0-100) 07/21/24 09:58 Atypical Lymphs % 0.0 % (0-5) 07/21/24 09:58 Absolute Neutrophils 12.5 10^3/cmm (1.4-6.5) H 07/21/24 09:58 Segmented Neutrophils 74 % 07/21/24 09:58 Band Neutrophils 6.0 % 07/21/24 09:58 Absolute Lymphocytes 2.0 10^3/cmm (1.2-3.4) 07/21/24 09:58 Lymphocytes (Manual) 13 % 07/21/24 09:58 Monocytes (Manual) 2.0 % 07/21/24 09:58 Absolute Monocytes 0.3 10^3/cmm (0.1-0.6) 07/21/24 09:58 Eosinophils (Manual) 0 % 07/21/24 09:58 Absolute Eosinophils 0.0 10^3/cmm (0.0-0.7) 07/21/24 09:58 Basophils (Manual) 0.0 % 07/21/24 09:58 Absolute Basophils 0.0 10^3/cmm (0.0-0.2) 07/21/24 09:58 Metamyelocytes 2.0 % 07/21/24 09:58 Myelocytes 3.0 % 07/21/24 09:58 Nucleated RBCs 1.0 /100WBC (0-1) 07/21/24 09:58 Nucleated RBCs # 0.0 /100WBC 07/24/24 04:58 Platelet Estimate Increased (Normal) H 07/21/24 09:58 Polychromasia Trace 07/21/24 09:58 Sodium 138 mmol/L (136-145) 07/24/24 04:58 Potassium 3.8 mmol/L (3.5-5.1) 07/24/24 04:58 Chloride 101 mmol/L (98-107) 07/24/24 04:58 Carbon Dioxide 27 mmol/L (22-29) 07/24/24 04:58 Anion Gap 13.8 (5-19) 07/24/24 04:58 BUN 12 mg/dL (8-23) 07/24/24 04:58 Creatinine 0.8 mg/dL (0.5-0.9) 07/24/24 04:58 GFR Calculation 71.3 mL/min (90-130) L 07/24/24 04:58 Glucose 100 mg/dL (65-115) 07/24/24 04:58 Calculated Osmolality 286 mOsm/kg (285-295) 07/24/24 04:58 Calcium 9.8 mg/dL (8.5-10.5) 07/24/24 04:58 Magnesium 2.3 mg/dL (1.7-2.3) 07/22/24 05:19 Total Bilirubin 0.4 mg/dL (0.15-1.2) 07/24/24 04:58 GGT 107 U/L (5-36) H 07/23/24 05:52 AST 70 U/L (0-32) H 07/24/24 04:58 ALT 118 U/L (0-33) H 07/24/24 04:58 Alkaline Phosphatase 108 U/L (35-105) H 07/24/24 04:58 Lactate Dehydrogenase 262 U/L (135-214) H 07/23/24 05:52 Troponin T 5th Gen ng/L 10 ng/L (0-10) 07/21/24 09:58 NT-Pro-B Natriuret Pep 64 pg/mL (0-125) 07/21/24 09:58 Total Protein 7.4 g/dL (6.6-8.7) 07/24/24 04:58 Albumin 3.3 g/dL (3.5-5.2) L 07/24/24 04:58 Globulin 4.1 g/dL (1.3-4.6) 07/24/24 04:58 TSH 7.44 uIU/mL (0.27-4.20) H 07/21/24 09:58 Urine Color Yellow (Yellow) 07/21/24 12:14 Urine Appearance Clear (CLEAR) 07/21/24 12:14 Urine pH 6.0 (5-7) 07/21/24 12:14 Ur Specific [place] 1.030 (1.005-1.030) 07/21/24 12:14 Urine Protein Trace (Negative) A 07/21/24 12:14 Urine Glucose (UA) Negative (Normal) 07/21/24 12:14 Urine Ketones Negative (Negative) 07/21/24 12:14 Urine Blood Negative (Negative) 07/21/24 12:14 Urine Nitrate Negative (Negative) 07/21/24 12:14 Urine Bilirubin Negative (Negative) 07/21/24 12:14 Urine Urobilinogen 1.0 mg/dL (Negative) 07/21/24 12:14 Ur Leukocyte Esterase 1+ (Negative) A 07/21/24 12:14 Urine RBC 0-2 /hpf (0-2) 07/21/24 12:14 Urine WBC 11-20 /hpf (0-5) H 07/21/24 12:14 Ur Squamous Epith Cells 0-5 /hpf (0-5) 07/21/24 12:14 Amorphous Sediment Not Reportable 07/21/24 12:14 Urine Bacteria None seen /hpf (NONE) 07/21/24 12:14 Hyaline Casts 0.81 /lpf 07/21/24 12:14 Nasal MRSA (PCR) Not detected (Not Detecte) 07/21/24 14:18 Coronavirus (PCR) Negative (Negative) 07/21/24 10:05 Hepatitis A IgM Ab Non-reactive (Nonreactive) 07/21/24 09:58 Hep Bs Antigen Non-reactive (Nonreactive) 07/21/24 09:58 Hep B Core IgM Ab Non-reactive (Nonreactive) 07/21/24 09:58 Hepatitis C Antibody Non-reactive (Nonreactive) 07/21/24 09:58 Influenza A (PCR) Negative (Negative) 07/21/24 10:05 Influenza Type B (PCR) Negative (Negative) 07/21/24 10:05 RSV (PCR) Negative (Negative) 07/21/24 10:05 Vitals Last Vital Signs Temp 98.3 F 07/24/24 12:00 Pulse 76 07/24/24 12:00 Resp 16 07/24/24 12:00 BP 108/69 07/24/24 08:00 Pulse Ox 94 07/24/24 12:00 O2 Del Method Room Air 07/24/24 12:00 O2 Flow Rate 2 07/22/24 10:53 Discharge Plan Discharge Patient Disposition: Home Condition: Stable Prescriptions: New amoxicillin-pot clavulanate 875-125 mg tablet 1 tab PO BID 5 Days Qty: 10 0RF Continued rosuvastatin 20 mg tablet 20 mg PO DAILY Qty: 90 0RF venlafaxine 150 mg capsule,extended release 24hr 150 mg PO BEDTIME aspirin [Mikey Low Dose Aspirin] 81 mg Tablet,Delayed Release (Dr/Ec) 81 mg PO DAILY levothyroxine 88 mcg tablet 88 mcg PO DAILY fenofibrate nanocrystallized 145 mg tablet 145 mg PO DAILY cholecalciferol (vitamin D3) [Vitamin D3] 50 mcg (2,000 unit) Tablet 50 mcg PO DAILY Discontinued cephalexin 500 mg capsule 500 mg PO TID Discharge Orders: Discharge Order (Routine); Ordered 07/24/24 Ordered By: Sera Lal Referrals: Nazanin Dumont APN [Primary Care Provider] - 07/29/24 2:00 pm Discharge Diet: Cardiac Discharge Activity: Resume usual activity Patient Instructions: Amoxicillin/Clavulanate Potassium (By mouth), Community Acquired Pneumonia (DC), Opioid Safety Discharge Attestations Time Spent in Discharge Care*: greater than 30 min Quality Metrics Clinical Quality Measures [ No reported AMI, CVA or VTE this stay] Coding Level of Care Code Acute Code for [facility] Fwd Diagnoses Community acquired pneumonia J18.9 Acute respiratory failure with hypoxia J96.01 Elevated liver transaminase level R74.01
== END 2024-07-24 14:41 | disposition home or self-care (01) | DRG 193 ==
LOC: ER 11:36 → MEDSURG 15:40
PROVIDERS: Emergency Medicine; Admitting Provider Internal Medicine; Emergency Provider Emergency Medicine; PCP Nurse Practitioner Family; Visit Provider Internal Medicine
DX: J18.9 Pneumonia, unspecified organism (principal); J96.01 Acute respiratory failure with hypoxia; J90 Pleural effusion, not elsewhere classified; F32.A Depression, unspecified; E03.9 Hypothyroidism, unspecified; E78.5 Hyperlipidemia, unspecified; Z87.891 Personal history of nicotine dependence; R74.01 Elevation of levels of liver transaminase levels; Z79.82 Long term (current) use of aspirin; Z87.01 Personal history of pneumonia (recurrent)
CPT/HCPCS: 0241U; 36415; 71046; 71275; 76705; 80048; 80053; 80074; 81001; 82977; 83615; 83735; 83880; 84443; 84450; 84460; 84484; 85007; 85025; 87040; 87070; 87205; 87449; 93005; 94760; 96365; 96372; 96375; 99285; J0456; J0696; J1650; J2919; J7050